=== PATIENT | female | born 1995 | race African-American/Black ===

== ENCOUNTER 2018-08-18 18:07 | Emergency (ER) | payer SELFPAY ==
[2018-08-18 18:41] VITALS: BP 125/86; PULSE 93; TEMP 97.6; BMI 17.4
--- NOTE | 2018-08-18 19:04 | PDOC ---
History of Present Illness - General Chief Complaint: Vaginal Bleeding Stated Complaint: 7 WEEKS /Vaginal Bleeding Time Seen by Provider: 08/18/18 19:04 Past History - Past Medical History Allergies/Adverse Reactions: Allergies Allergy/AdvReac Type Severity Reaction Status Date / Time No Known Allergies Allergy Verified 08/18/18 18:38 COPD: No - Suicide/Smoking/Psychosocial Hx Smoking History: Never smoked Have you smoked in the past 12 months: No Information on smoking cessation initiated: No Hx Alcohol Use: No Drug/Substance Use Hx: No *Physical Exam - Vital Signs Last Vital Signs Temp Pulse Resp BP Pulse Ox 97.6 F 93 H 16 125/86 100 08/18/18 18:07 08/18/18 18:07 08/18/18 18:07 08/18/18 18:07 08/18/18 18:07 Moderate Sedation - Procedure Monitoring Vital Signs: Procedure Monitoring Vital Signs Temperature 97.6 F 08/18/18 18:07 Pulse Rate 93 H 08/18/18 18:07 Respiratory Rate 16 08/18/18 18:07 Blood Pressure 125/86 08/18/18 18:07 O2 Sat by Pulse Oximetry (%) 100 08/18/18 18:07
--- NOTE | 2018-08-18 19:15 | PDOC ---
History of Present Illness - General Chief Complaint: Vaginal Bleeding Stated Complaint: 7 WEEKS /Vaginal Bleeding Time Seen by Provider: 08/18/18 19:04 - History of Present Illness Initial Comments: 08/18/18 19:20 23 yo female with no significant PMH presents today with some vaginal bleeding and crampy abdominal pain that began yesterday. She describes the bleeding as mixed in with her urine and some spotting. She presented with similar symptoms yesterday to [facility] and was informed that she is about 7 weeks . She was given a medication there yesterday but is not sure what it was, she states possibly an antibiotic. She denies having a primary care physician or an seafood and service meat manager. Past History - Travel Traveled outside of the country in the last 30 days: No - Past Medical History Allergies/Adverse Reactions: Allergies Allergy/AdvReac Type Severity Reaction Status Date / Time No Known Allergies Allergy Verified 08/18/18 18:38 Anemia: No COPD: No Diabetes: No - Suicide/Smoking/Psychosocial Hx Smoking History: Never smoked Have you smoked in the past 12 months: No Information on smoking cessation initiated: No Hx Alcohol Use: No Drug/Substance Use Hx: No Review of Systems - Review of Systems Able to Perform ROS?: Yes Constitutional: No: Chills, Diaphoresis, Fever HEENTM: No: Blurred Vision Respiratory: No: Cough, Shortness of Breath Cardiac (ROS): No: Chest Pain, Edema ABD/GI: No: Abdominal Distended : Yes: Hematuria, Pain (crampy pain), Other (spotting). No: Burning, Dysuria , Discharge Neurological: No: Weakness Hematologic/Lymphatic: No: Anemia, Blood Clots, Easy Bleeding *Physical Exam - Vital Signs Last Vital Signs Temp Pulse Resp BP Pulse Ox 97.6 F 93 H 16 125/86 100 08/18/18 18:07 08/18/18 18:07 08/18/18 18:07 08/18/18 18:07 08/18/18 18:07 - Physical Exam Comments: 08/18/18 19:24 GEN: A&O, no acute distress HEENT: PERRL, moist mucus membranes NECK: supple, no lymphadenopathy HEART: RRR, no murmurs noted LUNGS: CTA b/l, no wheezes or rales ABDOMEN: Soft, normoactive bowel sounds, some tenderness to palpation in the suprapubic region EXTREMITIES: no edema or calf tenderness 08/18/18 22:04 PELVIC: Moderate Sedation - Procedure Monitoring Vital Signs: Procedure Monitoring Vital Signs Temperature 97.6 F 08/18/18 18:07 Pulse Rate 93 H 08/18/18 18:07 Respiratory Rate 16 08/18/18 18:07 Blood Pressure 125/86 08/18/18 18:07 O2 Sat by Pulse Oximetry (%) 100 08/18/18 18:07 ED Treatment Course - LABORATORY CBC & Chemistry Diagram: 08/18/18 20:01 08/18/18 20:01 Medical Decision Making - Medical Decision Making 08/18/18 19:28 23 yo female who presents with crampy abdominal pain and blood noted in her urine with some additional spotting, states she is 7 weeks , found out yesterday after going to [facility] for similar complaints. Ddx includes regular IUP vs Ectopic vs spontaneous . CBC, CMP, Type and Screen, Coags, UA, Utox, and Transvaginal US pending 08/18/18 22:04 CBC without any signs of anemia, CMP unremarkable, Quantitative HCG 2600 Transvaginal US noted with 7 wk IUP, however no cardiac activity detected, suspect demise. Discussed with patient the importance of follow up with OB /Music Arranger. *DC/Admit/Observation/Transfer Diagnosis at time of Disposition: Vaginal bleeding in , Incomplete - Discharge Dispostion Disposition: HOME Condition at time of disposition: Stable Decision to Admit order: No - Referrals Referrals: Tima Sahni MD [Staff Physician] - Call tomorrow - Patient Instructions Printed Discharge Instructions: DI for Miscarriage, DI for Vaginal Bleeding During Additional Instructions: You were seen in the Emergency room for vaginal bleeding. Your lab work was within the normal limits and you were not anemic. An US was performed which revealed an intrauterine likely around 7 weeks, however cardiac activity was not able to be seen on the Ultrasound. At this time it is likely that you are undergoing a miscarraige, which is likely the cause of your bleeding. It is very important that you follow up with an [employer] doctor tomorrow for further evaluation. The name of an SNOW[employer]OWER MECHANIC has been provided to you. [facility] are unable to get in to see an SNOW[employer]OWER MECHANIC. At this point you can expect some crampy abdominal pain and some bleeding with passage of clots. If you have any fever, severe pain, or passage of a large amount of blood, you should be evaluated by a doctor or return to the emergency department. - Post Discharge Activity
[2018-08-18 20:27] LABS: BASO % 0.2 % (0-2.0); EOS % 0.3 % (0-4.5); HEMATOCRIT 37.7 % (32.4-45.2); HEMOGLOBIN 13.1 GM/dL (10.7-15.3); LYMPH % 10.1 % (8-40); MCH 30.3 pg (25.7-33.7); MCHC 34.8 g/dl (32.0-36.0); MEAN PLT VOLUME 7.3 fl (7.5-11.1); MONO % 5.2 % (3.8-10.2); NEUT % 84.2 % (42.8-82.8); PLATELET COUNT 291 K/MM3 (134-434); RBC 4.33 M/mm3 (3.60-5.2); RDW 16.5 % (11.6-15.6); WHITE BLOOD COUNT 10.8 K/mm3 (4.0-10.0)
[2018-08-18 20:38] LABS: INR 1.05 (0.83-1.09); PROTHROMBIN TIME (PATIENT) 12.4 SEC (9.7-13.0)
[2018-08-18 21:09] LABS: ALK PHOS 81 U/L (45-117); ANION GAP 9 MMOL/L (8-16); BILIRUBIN,TOTAL 1.8 mg/dL (0.2-1); BLOOD UREA NITROGEN 5 mg/dL (7-18); CHLORIDE 106 mmol/L (98-107); CO2 24 mmol/L (21-32); CREATININE 0.7 mg/dL (0.55-1.3); GLUCOSE,RANDOM 82 mg/dL (74-106); POTASSIUM 3.6 mmol/L (3.5-5.1); SGOT/AST 16 U/L (15-37); SGPT/ALT 13 U/L (13-61); SODIUM 139 mmol/L (136-145); TOT PROT 8.1 g/dl (6.4-8.2)
== END 2018-08-18 23:03 | disposition home or self-care (01) ==
LOC: JER 18:07
DX: O26.891 Other specified pregnancy related conditions, first trimester (principal); O03.4 Incomplete spontaneous abortion without complication; Z3A.01 Less than 8 weeks gestation of pregnancy
CPT/HCPCS: 36415; 76830-TC; 80053; 84702; 85025; 85610; 86850; 86900; 86901; 99282-25